=== PATIENT | female | born 1950 | race African-American/Black ===

== ENCOUNTER 2017-01-02 20:29 | Emergency (ER) | payer MEDICAID ==
[~2017-01-02] VITALS: Ht 162.6 cm; Wt 54.0 kg
[2017-01-03 00:28] LABS: BASOPHILS % 0.6 % (0.0-2.0); EOSINOPHILS % 0.2 % (0.0-5.0); HEMATOCRIT. 24.9 % (36.0-48.0); HEMOGLOBIN. 8.3 g/dL (12.0-16.0); LYMPHOCYTES % 14.3 % (20.0-50.0); MEAN CORPUSCULAR HEMOGLOBIN 34.4 pg (28.0-32.0); MEAN CORPUSCULAR VOLUME 102.9 fL (81.0-99.0); MEAN PLATELET VOLUME 8.4 fl (7.4-10.4); MONOCYTES % 9.6 % (2.0-8.0); NEUTROPHILS % 75.3 % (40.0-76.0); PLATELET 194 x1000/uL (130-400); RED BLOOD CELL COUNT 2.42 mill/uL (4.2-5.4); RED CELL DISTRIBUTION WIDTH 13.4 % (11.6-14.6)
[2017-01-03 00:37] LABS: INR 1.1; PARTIAL THROMBOPLASTIN TIME 29.3 sec (24.0-34.0); PROTHROMBIN TIME 11.1 sec
[2017-01-03 00:42] LABS: CARBON DIOXIDE 23 mEq/L (21-32); CHLORIDE 113 mEq/L (98-107)
[2017-01-03 01:24] LABS: CLARITY URINE CLEAR (CLEAR); COLOR URINE YELLOW (YELLOW); GLUCOSE URINE NEGATIVE (NEGATIVE); KETONES URINE NEGATIVE (NEGATIVE); LEUKOCYTE ESTERASE URINE NEGATIVE (NEGATIVE); NITRITE URINE NEGATIVE (NEGATIVE); OCCULT BLOOD URINE NEGATIVE (NEGATIVE); PROTEIN URINE NEGATIVE (NEGATIVE); UROBILINOGEN URINE 0.2 E.U./dL (0.2-1.0)
[2017-01-03] MEDS ORDERED: MORPHINE SULFATE 1MG/ML 1ML INJ SYR(NEO) IV ONE (01:30)
[2017-01-03] MEDS ORDERED: ONDANSETRON HCL 4MG/2ML VIAL IV ONE (01:30)
[2017-01-03] MEDS ORDERED: ONDANSETRON HCL 4MG/2ML VIAL IV NR (01:45)
[2017-01-03] MEDS ORDERED: MORPHINE SULFATE 4 MG/ML CPJ (NOT FOR IM USE) IV NR (01:45)
[2017-01-03 06:32] VITALS: BP 95/62
== END 2017-01-03 10:04 | disposition home or self-care (01) ==
LOC: ER 20:53
DX: K29.70 Gastritis, unspecified, without bleeding (principal); D64.9 Anemia, unspecified; F10.129 Alcohol abuse with intoxication, unspecified; F17.200 Nicotine dependence, unspecified, uncomplicated; G89.29 Other chronic pain; Z85.3 Personal history of malignant neoplasm of breast
CPT/HCPCS: 36415; 74176; 80053; 81003; 83690; 85025; 85610; 85730; 93005; 96374; 96375; 99285; G0482; J2270; J2405; Z7610

== ENCOUNTER 2020-12-16 17:11 | Inpatient (IN) | payer MEDICARE, OTHER ==
[~2020-12-16] VITALS: Ht 162.6 cm; Wt 64.9 kg
[~2020-12-16 17:11] MED LIST: OMEP20CA14 PO
[2020-12-16] MEDS ORDERED: ONDANSETRON HCL 4MG/2ML INJ IV STA (17:18)
[2020-12-16] MEDS ORDERED: PANTOPRAZOLE SODIUM 40 MG/VIAL IV STA (17:18)
[2020-12-16] MEDS ORDERED: SODIUM CHLORIDE 0.9% 1,000 ML IV ONE ×2 (17:30→18:45)
[2020-12-16 17:50] LABS: HEMOGLOBIN. 11.1 g/dL (12.0-16.0); MEAN CORPUSCULAR HEMOGLOBIN 33.9 pg (28.0-32.0); MEAN CORPUSCULAR VOLUME 103.7 fL (81.0-99.0); MEAN PLATELET VOLUME 10.2 fl (7.4-10.4); PLATELET 195 x1000/uL (130-400); RED BLOOD CELL COUNT 3.28 mill/uL (4.2-5.4); RED CELL DISTRIBUTION WIDTH 14.5 % (11.6-14.6)
[2020-12-16 17:56] LABS: CHLORIDE 113 mEq/L (98-107)
[2020-12-16 17:58] LABS: PROTHROMBIN TIME 10.7 sec (9.6-11.0)
[2020-12-16 18:33] LABS: PLATELET ESTIMATE NORMAL
[2020-12-16] MEDS ORDERED: PIPERACILLIN/TAZOBACTAM 3.375GM/50ML PREMIX IV ONE (18:45)
[2020-12-16] MEDS ORDERED: PIPERACILLIN/TAZ 3.375G PREMIX 50 ML IV NR (19:00)
[2020-12-16 22:55] LABS: CLARITY URINE CLOUDY (CLEAR); COLOR URINE DARK YELLOW (YELLOW); KETONES URINE 1+ (NEGATIVE); LEUKOCYTE ESTERASE URINE 2+ (NEGATIVE); NITRITE URINE NEGATIVE (NEGATIVE); OCCULT BLOOD URINE NEGATIVE (NEGATIVE); PROTEIN URINE 2+ (NEGATIVE); SPECIFIC GRAVITY URINE 1.025 (1.005-1.030)
[2020-12-17 00:45] VITALS: BP 129/76
[2020-12-17] MEDS ORDERED: MORPHINE SULFATE 2 MG/ML CPJ (NOT FOR IM USE) IV PRN (02:00)
[2020-12-17] MEDS ORDERED: DEXT 5%/0.45% NACL 1000ML 1,000 ML IV SCH (03:00)
[2020-12-17 04:00] VITALS: BP 128/83
[2020-12-17] MEDS: PIPERACILLIN/TAZOBACTAM 2.25 G in DEXTROSE 5% WATER 50 ML IV SCH ×3 (04:40→23:16)
[2020-12-17 06:40] LABS: BASOPHILS % 0.5 % (0.0-2.0); EOSINOPHILS % 0.2 % (0.0-5.0); HEMATOCRIT. 28.5 % (36.0-48.0); HEMOGLOBIN. 9.5 g/dL (12.0-16.0); MEAN CORPUSCULAR HEMOGLOBIN 33.5 pg (28.0-32.0); MEAN CORPUSCULAR VOLUME 100.9 fL (81.0-99.0); MEAN PLATELET VOLUME 10.3 fl (7.4-10.4); MONOCYTES % 7.3 % (2.0-8.0); PLATELET 180 x1000/uL (130-400); RED BLOOD CELL COUNT 2.83 mill/uL (4.2-5.4); RED CELL DISTRIBUTION WIDTH 14.3 % (11.6-14.6)
[2020-12-17 07:54] LABS: CHLORIDE 120 mEq/L (98-107)
[2020-12-17 08:00] VITALS: BP 142/95
[2020-12-17 08:01] LABS: AMYLASE 350 IU/L (25-115)
[2020-12-17 08:05] LABS: HDL CHOLESTEROL 78 mg/dL (40-59)
[2020-12-17 08:06] LABS: LDL CHOLESTEROL 85 mg/dL (5-100)
[2020-12-17] MEDS: PANTOPRAZOLE SODIUM 40 MG/VIAL IV SCH (08:16)
[2020-12-17] MEDS: DEXT 5%/0.45% NACL KCL 20MEQ/L 1,000 ML IV SCH ×2 (08:16→16:33)
[2020-12-17] MEDS ORDERED: PIPERACILLIN/TAZOBACTAM 3.375 G/VIAL IV SCH (09:00)
[2020-12-17 12:00] VITALS: BP 137/83
[2020-12-17] MEDS ORDERED: POTASSIUM CHLORIDE 20MEQ TABLET SR PO NR (13:00)
[2020-12-17 16:00] VITALS: BP 129/82
[2020-12-17 20:00] VITALS: BP 128/79
[2020-12-17 20:34] LABS: AMYLASE 269 IU/L (25-115)
[2020-12-18] VITALS: BP 118/77
[2020-12-18] MEDS: DEXT 5%/0.45% NACL KCL 20MEQ/L 1,000 ML IV SCH ×3 (01:22→18:22)
[2020-12-18 04:00] VITALS: BP 107/69
[2020-12-18] MEDS: PIPERACILLIN/TAZOBACTAM 2.25 G in DEXTROSE 5% WATER 50 ML IV SCH ×3 (05:11→21:42)
[2020-12-18 08:00] VITALS: BP 121/80
[2020-12-18 09:00] LABS: CHLORIDE 118 mEq/L (98-107)
[2020-12-18 09:05] LABS: *AMPHETAMINES SCREEN URINE NEGATIVE (NEGATIVE); *BENZODIAZEPINES SCREEN URINE NEGATIVE (NEGATIVE); *COCAINE SCREEN URINE NEGATIVE (NEGATIVE); METHADONE URINE SCREEN NEGATIVE (NEGATIVE); OPIATES URINE SCREEN NEGATIVE (NEGATIVE)
[2020-12-18 09:06] LABS: *BARBITURATES SCREEN URINE NEGATIVE (NEGATIVE); CANNABINOID URINE SCREEN NEGATIVE (NEGATIVE); PHENCYCLIDINE URINE SCREEN NEGATIVE (NEGATIVE)
[2020-12-18 09:16] LABS: BASOPHILS % 0.3 % (0.0-2.0); EOSINOPHILS % 0.5 % (0.0-5.0); HEMATOCRIT. 29.3 % (36.0-48.0); HEMOGLOBIN. 9.4 g/dL (12.0-16.0); LYMPHOCYTES % 16.2 % (20.0-50.0); MEAN CORPUSCULAR HEMOGLOBIN 33.1 pg (28.0-32.0); MEAN CORPUSCULAR VOLUME 102.9 fL (81.0-99.0); MEAN PLATELET VOLUME 10.4 fl (7.4-10.4); MONOCYTES % 9.4 % (2.0-8.0); NEUTROPHILS % 73.6 % (40.0-76.0); PLATELET 152 x1000/uL (130-400); RED BLOOD CELL COUNT 2.85 mill/uL (4.2-5.4); RED CELL DISTRIBUTION WIDTH 14.5 % (11.6-14.6)
[2020-12-18] MEDS: PANTOPRAZOLE SODIUM 40 MG/VIAL IV SCH (09:29)
[2020-12-18 12:00] VITALS: BP 117/82
[2020-12-18] MEDS: HYDROCODONE/ACETAMINOPHEN 5/325MG TABLET PO PRN (13:44)
[2020-12-18] MEDS: ONDANSETRON HCL 4MG/2ML INJ IV PRN ×2 (13:59→18:22)
[2020-12-18 16:00] VITALS: BP 100/66
[2020-12-18 20:00] VITALS: BP 104/70
[2020-12-19] VITALS: BP 107/62
[2020-12-19] MEDS: DEXT 5%/0.45% NACL KCL 20MEQ/L 1,000 ML IV SCH ×2 (01:07→08:59)
[2020-12-19 04:00] VITALS: BP 111/70
[2020-12-19] MEDS: PIPERACILLIN/TAZOBACTAM 2.25 G in DEXTROSE 5% WATER 50 ML IV SCH (05:23)
[2020-12-19] MEDS ORDERED: FAMOTIDINE 20MG/2ML VIAL IV SCH (09:00)
[2020-12-19] MEDS: HYDROCODONE/ACETAMINOPHEN 5/325MG TABLET PO PRN (09:08)
[2020-12-19] MEDS ORDERED: LEVO500T89 MT (11:48)
[2020-12-19 12:40] VITALS: BP 110/69
== END 2020-12-19 14:25 | disposition home or self-care (01) | DRG 720 ==
LOC: ER 17:50 → 8WST 19:55 → ENRESERV 23:34
PROVIDERS: ADMIT Internal Medicine; ATTEND Internal Medicine
PROC: 0HBRXZZ Excision of Toe Nail, External Approach (ICD-10-PCS; principal; 2020-12-17)
PROC: 0HBRXZZ Excision of Toe Nail, External Approach (ICD-10-PCS; 2020-12-17)
PROC: 0HBRXZZ Excision of Toe Nail, External Approach (ICD-10-PCS; 2020-12-17)
PROC: 0HBRXZZ Excision of Toe Nail, External Approach (ICD-10-PCS; 2020-12-17)
PROC: 0HBRXZZ Excision of Toe Nail, External Approach (ICD-10-PCS; 2020-12-17)
PROC: 0HBRXZZ Excision of Toe Nail, External Approach (ICD-10-PCS; 2020-12-17)
PROC: 0HBRXZZ Excision of Toe Nail, External Approach (ICD-10-PCS; 2020-12-17)
PROC: 0HBRXZZ Excision of Toe Nail, External Approach (ICD-10-PCS; 2020-12-17)
PROC: 0HBRXZZ Excision of Toe Nail, External Approach (ICD-10-PCS; 2020-12-17)
PROC: 0HBRXZZ Excision of Toe Nail, External Approach (ICD-10-PCS; 2020-12-17)
DX: A41.9 Sepsis, unspecified organism (principal); N17.0 Acute kidney failure with tubular necrosis; E87.0 Hyperosmolality and hypernatremia; K85.10 Biliary acute pancreatitis without necrosis or infection; E87.8 Other disorders of electrolyte and fluid balance, not elsewhere classified; D64.9 Anemia, unspecified; F17.210 Nicotine dependence, cigarettes, uncomplicated; K46.9 Unspecified abdominal hernia without obstruction or gangrene; I12.9 Hypertensive chronic kidney disease with stage 1 through stage 4 chronic kidney disease, or unspecified chronic kidney disease; E87.6 Hypokalemia; E87.1 Hypo-osmolality and hyponatremia; L60.2 Onychogryphosis; N18.9 Chronic kidney disease, unspecified; N39.0 Urinary tract infection, site not specified; Z85.3 Personal history of malignant neoplasm of breast; Z87.11 Personal history of peptic ulcer disease; Z79.899 Other long term (current) drug therapy; Z71.6 Tobacco abuse counseling
CPT/HCPCS: 36415; 71045; 74176; 76705; 80048; 80053; 80061; 80305; 81003; 82150; 83036; 83605; 84484; 85025; 93005; 97161; 99285; C9113; J2405; J2543; J3490; J7030; J7060

== ENCOUNTER 2020-12-26 06:47 | Inpatient (IN) | payer MEDICARE, OTHER ==
[~2020-12-26] VITALS: Ht 163.8 cm; Wt 43.8 kg
[~2020-12-26 06:47] MED LIST changes: +LEVO500T89 MT
[2020-12-26] MEDS ORDERED: SODIUM CHLORIDE 0.9% 1000ML BAG (SEPSIS BOLUS) IV ONE (07:45)
[2020-12-26] MEDS ORDERED: VANCOMYCIN 1 G PREMIX 200 ML IV ONE (07:45)
[2020-12-26] MEDS ORDERED: PIPERACILLIN/TAZ 3.375G PREMIX 50 ML IV ONE (07:45)
[2020-12-26 08:27] LABS: CHLORIDE 143 mEq/L (98-107)
[2020-12-26 08:48] LABS: EOSINOPHILS % 0.6 % (0.0-5.0); HEMATOCRIT. 32.5 % (36.0-48.0); HEMOGLOBIN. 10.7 g/dL (12.0-16.0); LYMPHOCYTES % 15.2 % (20.0-50.0); MEAN CORPUSCULAR HEMOGLOBIN 33.6 pg (28.0-32.0); MEAN CORPUSCULAR VOLUME 102.3 fL (81.0-99.0); MONOCYTES % 10.6 % (2.0-8.0); NEUTROPHILS % 72.6 % (40.0-76.0); PLATELET 265 x1000/uL (130-400); RED BLOOD CELL COUNT 3.18 mill/uL (4.2-5.4); RED CELL DISTRIBUTION WIDTH 15.2 % (11.6-14.6)
[2020-12-26 08:51] LABS: INR 1.1; PROTHROMBIN TIME 11.9 sec (9.6-11.0)
[2020-12-26] MEDS: ONDANSETRON HCL 4MG/2ML INJ IV ONE ×2 (10:00→10:52)
[2020-12-26] MEDS ORDERED: SODIUM CHLORIDE 0.45% 1,000 ML IV ONE (10:30)
[2020-12-26] MEDS ORDERED: DEXTROSE 5% WATER 1,000 ML IV ONE (12:30)
[2020-12-26 12:34] LABS: CLARITY URINE CLOUDY (CLEAR); COLOR URINE DARK YELLOW (YELLOW); KETONES URINE TRACE (NEGATIVE); LEUKOCYTE ESTERASE URINE 2+ (NEGATIVE); NITRITE URINE NEGATIVE (NEGATIVE); OCCULT BLOOD URINE NEGATIVE (NEGATIVE); PROTEIN URINE 2+ (NEGATIVE); SPECIFIC GRAVITY URINE 1.035 (1.005-1.030)
[2020-12-26] MEDS: PANTOPRAZOLE SODIUM 40 MG/VIAL IV SCH (13:00)
[2020-12-26] MEDS ORDERED: ONDANSETRON HCL 4MG/2ML INJ IV PRN (13:00)
[2020-12-26] MEDS ORDERED: DEXTROSE 5% WATER 1,000 ML IV SCH (13:00)
[2020-12-26] MEDS ORDERED: LORAZEPAM 2MG/ML CPJ IV PRN (13:00)
[2020-12-26] MEDS ORDERED: DOCUSATE SODIUM 100MG CAPSULE PO PRN (13:00)
[2020-12-26] MEDS ORDERED: ACETAMINOPHEN 325MG TABLET PO PRN (13:00)
[2020-12-26] MEDS ORDERED: MAGNESIUM/ALUMINUM HYDROXIDE/SIMETHICONE 30ML UDC PO PRN (13:00)
[2020-12-26] MEDS: ENOXAPARIN 30MG/0.3ML SYR SUBCUT SCH ×2 (13:30→14:06)
[2020-12-26] MEDS ORDERED: CEFTRIAXONE 1 G PREMIX 50 ML IV SCH (14:00)
[2020-12-26 16:36] VITALS: BP 132/86
[2020-12-26 18:00] VITALS: BP 126/69
[2020-12-26] MEDS: CEFTRIAXONE 1,000 MG in DEXTROSE 5% WATER 50 ML IV SCH (18:59)
[2020-12-26] MEDS: DEXTROSE 5% WATER 1,000 ML IV SCH (19:00)
[2020-12-26 20:00] VITALS: BP 131/56
[2020-12-26 22:00] VITALS: BP 115/64
[2020-12-27] VITALS (10 sets, daily range): BP systolic 106–165; BP diastolic 49–90
[2020-12-27] MEDS: DEXTROSE 5% WATER 1,000 ML IV SCH ×2 (03:02→12:49)
[2020-12-27] MEDS: PANTOPRAZOLE SODIUM 40 MG/VIAL IV SCH (08:48)
[2020-12-27] MEDS: ENOXAPARIN 30MG/0.3ML SYR SUBCUT SCH (08:49)
[2020-12-27 12:45] LABS: HEMOGLOBIN. 9.2 g/dL (12.0-16.0); MEAN CORPUSCULAR VOLUME 99.9 fL (81.0-99.0); MEAN PLATELET VOLUME 10.2 fl (7.4-10.4); PLATELET 152 x1000/uL (130-400); RED CELL DISTRIBUTION WIDTH 14.7 % (11.6-14.6)
[2020-12-27 12:54] LABS: CHLORIDE 124 mEq/L (98-107)
[2020-12-27 13:31] LABS: NUCLEATED RED BLOOD CELLS 3 /100 WBC; PLATELET ESTIMATE NORMAL
[2020-12-27] MEDS ORDERED: LIDOCAINE HCL/PF 1% 2ML VIAL ONE (14:38)
[2020-12-27 15:52] LABS: BG BASE EXCESS -8.2 mmol/L (-2.0-2.0); BG CARBOXYHEMOGLOBIN 0.3 % (0.5-1.5); BG DEOXYHEMOGLOBIN 2.5 % (0.0-5.0); BG FRACTION INSPIRED OXYGEN 21; BG METHEMOGLOBIN 0.3 % (0.0-1.5); BG OXYGEN SATURATION 97.5 % (92.0-98.5); BG OXYHEMOGLOBIN 96.9 % (94.0-97.0); BG PCO2 28.3 mmHg (35.0-45.0); BG PH 7.369 (7.350-7.450); BG SAMPLE SITE RIGHT RADIAL; BG TOTAL HEMOGLOBIN 9.9 g/dL (12.0-18.0); BG VENT MODE ROOM AIR
[2020-12-27] MEDS ORDERED: POTASSIUM CHLORIDE INJ 40 MEQ in DEXT 5% WATER 250 ML IV NR (16:00)
[2020-12-27] MEDS: SODIUM BICARBONATE 100 MEQ in SODIUM CHLORIDE 0.45% 1,000 ML IV SCH (17:05)
[2020-12-27] MEDS: CEFTRIAXONE 1,000 MG in DEXTROSE 5% WATER 50 ML IV SCH (17:14)
[2020-12-27] MEDS: METRONIDAZOLE 500 MG PREMIX 100 ML IV SCH (17:14)
[2020-12-27] MEDS: POTASSIUM CHLORIDE 20MEQ TABLET SR PO SCH (20:29)
[2020-12-27 21:12] LABS: CREATINE KINASE 31 IU/L (26-192)
[2020-12-28] VITALS: BP 135/63
[2020-12-28] MEDS: SODIUM BICARBONATE 100 MEQ in SODIUM CHLORIDE 0.45% 1,000 ML IV SCH ×2 (02:35→15:26)
[2020-12-28] MEDS: METRONIDAZOLE 500 MG PREMIX 100 ML IV SCH ×2 (03:53→17:09)
[2020-12-28 04:00] VITALS: BP 107/68
[2020-12-28 07:26] LABS: BASOPHILS % 0.5 % (0.0-2.0); EOSINOPHILS % 0.7 % (0.0-5.0); HEMATOCRIT. 25.8 % (36.0-48.0); HEMOGLOBIN. 8.8 g/dL (12.0-16.0); LYMPHOCYTES % 9.8 % (20.0-50.0); MEAN CORPUSCULAR HEMOGLOBIN 33.8 pg (28.0-32.0); MEAN CORPUSCULAR VOLUME 98.6 fL (81.0-99.0); MEAN PLATELET VOLUME 10.7 fl (7.4-10.4); MONOCYTES % 6.1 % (2.0-8.0); NEUTROPHILS % 82.9 % (40.0-76.0); PLATELET 125 x1000/uL (130-400); RED BLOOD CELL COUNT 2.62 mill/uL (4.2-5.4); RED CELL DISTRIBUTION WIDTH 14.8 % (11.6-14.6)
[2020-12-28 07:29] LABS: CHLORIDE 122 mEq/L (98-107)
[2020-12-28 08:00] VITALS: BP 122/62
[2020-12-28] MEDS: PANTOPRAZOLE SODIUM 40 MG/VIAL IV SCH (09:25)
[2020-12-28] MEDS: POTASSIUM CHLORIDE 20MEQ TABLET SR PO SCH (09:26)
[2020-12-28] MEDS: ENOXAPARIN 30MG/0.3ML SYR SUBCUT SCH (09:26)
[2020-12-28] MEDS ORDERED: POTASSIUM CHLORIDE INJ 60 MEQ in DEXT 5% WATER 500 ML IV SCH (11:00)
[2020-12-28 12:00] VITALS: BP 119/64
[2020-12-28 16:00] VITALS: BP 114/57
[2020-12-28] MEDS: CEFTRIAXONE 1,000 MG in DEXTROSE 5% WATER 50 ML IV SCH (18:12)
[2020-12-28 21:56] VITALS: BP 126/69
[2020-12-28] MEDS ORDERED: MAGNESIUM 2 G PREMIX 50 ML IV ONE (23:00)
[2020-12-29] VITALS: BP 133/68
[2020-12-29] MEDS: METRONIDAZOLE 500 MG PREMIX 100 ML IV SCH ×2 (03:44→16:18)
[2020-12-29 04:00] VITALS: BP 122/71
[2020-12-29] MEDS: SODIUM BICARBONATE 100 MEQ in SODIUM CHLORIDE 0.45% 1,000 ML IV SCH (06:22)
[2020-12-29] MEDS: POTASSIUM CHLORIDE 20MEQ TABLET SR PO SCH (06:48)
[2020-12-29] MEDS ORDERED: POTASSIUM CHLORIDE INJ 40 MEQ in DEXT 5% WATER 250 ML IV SCH (09:00)
[2020-12-29] MEDS: PANTOPRAZOLE SODIUM 40 MG/VIAL IV SCH (09:34)
[2020-12-29] MEDS: ENOXAPARIN 30MG/0.3ML SYR SUBCUT SCH (09:35)
[2020-12-29] MEDS: MAGNESIUM OXIDE 400MG TABLET PO SCH (09:35)
[2020-12-29 10:08] LABS: ANTI-NUCLEAR ANTIBODIES DIRECT Negative (Negative)
[2020-12-29 12:00] VITALS: BP 97/60
[2020-12-29 12:26] LABS: BASOPHILS % 0.4 % (0.0-2.0); EOSINOPHILS % 0.9 % (0.0-5.0); HEMATOCRIT. 26.7 % (36.0-48.0); HEMOGLOBIN. 9.2 g/dL (12.0-16.0); LYMPHOCYTES % 11.6 % (20.0-50.0); MEAN CORPUSCULAR VOLUME 98.5 fL (81.0-99.0); MEAN PLATELET VOLUME 10.7 fl (7.4-10.4); MONOCYTES % 4.2 % (2.0-8.0); NEUTROPHILS % 82.9 % (40.0-76.0); PLATELET 110 x1000/uL (130-400); RED BLOOD CELL COUNT 2.71 mill/uL (4.2-5.4); RED CELL DISTRIBUTION WIDTH 14.4 % (11.6-14.6)
[2020-12-29 16:00] VITALS: BP 118/63
[2020-12-29] MEDS: DEXTROSE 5% WATER 1,000 ML IV SCH (16:18)
[2020-12-29] MEDS: CEFTRIAXONE 1,000 MG in DEXTROSE 5% WATER 50 ML IV SCH (18:56)
[2020-12-29 20:00] VITALS: BP 126/78
[2020-12-30] VITALS: BP 101/52
[2020-12-30] MEDS: METRONIDAZOLE 500 MG PREMIX 100 ML IV SCH ×2 (03:19→15:29)
[2020-12-30 04:00] VITALS: BP 98/55
[2020-12-30 06:37] LABS: CHLORIDE 117 mEq/L (98-107)
[2020-12-30 06:42] LABS: BASOPHILS % 0.5 % (0.0-2.0); EOSINOPHILS % 2.7 % (0.0-5.0); HEMATOCRIT. 23.1 % (36.0-48.0); LYMPHOCYTES % 10.6 % (20.0-50.0); MEAN CORPUSCULAR VOLUME 97.8 fL (81.0-99.0); MEAN PLATELET VOLUME 11.5 fl (7.4-10.4); NEUTROPHILS % 80.2 % (40.0-76.0); PLATELET 99 x1000/uL (130-400); RED BLOOD CELL COUNT 2.37 mill/uL (4.2-5.4); RED CELL DISTRIBUTION WIDTH 14.5 % (11.6-14.6)
[2020-12-30] MEDS: PANTOPRAZOLE SODIUM 40 MG/VIAL IV SCH (08:09)
[2020-12-30] MEDS: ENOXAPARIN 30MG/0.3ML SYR SUBCUT SCH (08:10)
[2020-12-30] MEDS: MAGNESIUM OXIDE 400MG TABLET PO SCH (08:10)
[2020-12-30 08:28] VITALS: BP 102/57
[2020-12-30] MEDS ORDERED: POTASSIUM CHLORIDE 20MEQ/PACKET PO SCH (09:00)
[2020-12-30 12:47] VITALS: BP 110/60
[2020-12-30] MEDS: DEXTROSE 5% WATER 1,000 ML IV SCH ×2 (13:23→20:15)
[2020-12-30 15:56] VITALS: BP 109/61
[2020-12-30] MEDS: CEFTRIAXONE 1,000 MG in DEXTROSE 5% WATER 50 ML IV SCH (17:49)
[2020-12-30 20:00] VITALS: BP 103/58
[2020-12-31] VITALS: BP 132/59
[2020-12-31 04:00] VITALS: BP 107/59
[2020-12-31] MEDS: METRONIDAZOLE 500 MG PREMIX 100 ML IV SCH ×2 (04:41→16:13)
[2020-12-31] MEDS: DEXTROSE 5% WATER 1,000 ML IV SCH (04:41)
[2020-12-31 06:17] LABS: BASOPHILS % 0.5 % (0.0-2.0); EOSINOPHILS % 4.1 % (0.0-5.0); HEMATOCRIT. 23.6 % (36.0-48.0); LYMPHOCYTES % 15.9 % (20.0-50.0); MEAN CORPUSCULAR HEMOGLOBIN 33.5 pg (28.0-32.0); MEAN CORPUSCULAR VOLUME 98.4 fL (81.0-99.0); MEAN PLATELET VOLUME 11.8 fl (7.4-10.4); MONOCYTES % 9.8 % (2.0-8.0); NEUTROPHILS % 69.7 % (40.0-76.0); PLATELET 96 x1000/uL (130-400); RED BLOOD CELL COUNT 2.39 mill/uL (4.2-5.4); RED CELL DISTRIBUTION WIDTH 14.7 % (11.6-14.6)
[2020-12-31] MEDS: ENOXAPARIN 30MG/0.3ML SYR SUBCUT SCH (09:00)
[2020-12-31] MEDS: MAGNESIUM OXIDE 400MG TABLET PO SCH (09:01)
[2020-12-31] MEDS: PANTOPRAZOLE SODIUM 40 MG/VIAL IV SCH (09:01)
[2020-12-31] MEDS ORDERED: POTASSIUM CHLORIDE 20MEQ/PACKET PO NR (10:15)
[2020-12-31 16:20] VITALS: BP 140/82
== END 2020-12-31 18:27 | disposition home health service (06) | DRG 720 ==
LOC: ER 07:16 → EDBEDREQSVC 08:01 → EDBEDREQTM 08:01 → 5EST 12:22 → EDBEDREQSVC 12:26 → EDBEDREQ 12:26 → EDBEDREQTM 12:26 → ENRESERV 14:55 → ER 15:36 → 8WST 12-27 13:40
PROVIDERS: ADMIT Hospitalist; ATTEND Hospitalist
DX: A41.9 Sepsis, unspecified organism (principal); N17.0 Acute kidney failure with tubular necrosis; G93.41 Metabolic encephalopathy; E87.0 Hyperosmolality and hypernatremia; E44.1 Mild protein-calorie malnutrition; E83.42 Hypomagnesemia; D69.6 Thrombocytopenia, unspecified; E83.52 Hypercalcemia; E87.2 Acidosis; D63.8 Anemia in other chronic diseases classified elsewhere; E86.9 Volume depletion, unspecified; E87.6 Hypokalemia; F17.210 Nicotine dependence, cigarettes, uncomplicated; N18.9 Chronic kidney disease, unspecified; N39.0 Urinary tract infection, site not specified; N28.89 Other specified disorders of kidney and ureter; Z82.49 Family history of ischemic heart disease and other diseases of the circulatory system; Z87.11 Personal history of peptic ulcer disease; Z79.2 Long term (current) use of antibiotics; Z79.899 Other long term (current) drug therapy; Z85.9 Personal history of malignant neoplasm, unspecified; Z68.1 Body mass index [BMI] 19.9 or less, adult; Z87.19 Personal history of other diseases of the digestive system; Z71.6 Tobacco abuse counseling
CPT/HCPCS: 36415; 36600; 71045; 74176; 76700; 80048; 80053; 81003; 82375; 82550; 82805; 82962; 83605; 83735; 83930; 83935; 84132; 84133; 84145; 84484; 85025; 86038; 86160; 93005; 97116; 97162; 97530; 99291; A6261; C1893; C9113; J0696; J1650; J2405; J2543; J3370; J3475; J3480; J3490; J7030; J7040; J7042; J7060; J7070; A4315